=== PATIENT | male | born 1975 | race Caucasian/White ===

== ENCOUNTER 2017-09-15 02:28 | Emergency (ER) | payer MEDICAID, SELFPAY ==
[2017-09-15 02:32] VITALS: BP 130/90; PULSE 78; RESP 20; TEMP 37.1; O2SAT 98; BMI 30.5
--- NOTE | 2017-09-15 02:37 | XR_ITS ---
EXAM: XR lumbar spine 2-3V HISTORY: Low back pain ITS.REASON: back pain ORDERING PHYSICIAN: Esau Will MD PATIENT AGE: 42 years COMPARISON: None FINDINGS: Normal alignment. No fracture or dislocation. No lytic or blastic change. There is decrease in the disc space at L5-S1 consistent with degenerative disc disease. IMPRESSION: Degenerative disc disease L5-S1 otherwise negative
--- NOTE | 2017-09-15 02:52 | HMH.EDBACK ---
ED Disposition Clinical Impression: Lumbar radiculopathy Disposition: Home, Self-Care Condition on Discharge: Good Instructions: DI for Low Back Pain Additional Instructions: call this am for follow up Prescriptions: predniSONE [Prednisone 20mg Tab] 20 mg PO DAILY #10 tab Tizanidine HCl [Zanaflex 4mg tablet] 4 mg PO TID #21 tab Referrals: Shiv Colon MD [Primary Care Provider] - - Critical Care Critical Care Time: No Attestation: On 09/15/17, the high probability of a clinically significant, sudden or life threatening deterioration of the following system(s) required my full and direct attention, intervention and personal management. The time I documented below is in addition to time spent performing reported procedures but includes the following listed in this critical care notation. Medical Decision Making - Medical Records Medical records reviewed: Yes: I reviewed the patient's medical records. - [place] Inquiry Pt receiving controlled substance: No Vital Signs: 09/15/17 02:32 Temperature 98.7 F Temperature Source Oral Pulse Rate [Right Radial] 78 Respiratory Rate 20 Blood Pressure [Right Arm] 130/90 Blood Pressure Mean [Right Arm] 103 Blood Pressure Source [Right Arm] Manual Cuff/ Auscultation 02 Sat by Pulse Oximetry 98 - Lab Data Lab results reviewed: Yes: I reviewed the patient's lab results. Lab Results 09/15/17 03:05: WBC 13.2 H, RBC 4.94, Hgb 14.8, Hct 44.0, MCV 89.0, MCH 30.0, MCHC 33.7, RDW 12.3, Plt Count 286, MPV 7.3 L, Neut % (Auto) 82.3 H, Lymph % (Auto) 12.0, [place] % (Auto) 4.6, Eos % (Auto) 0.9, Baso % (Auto) 0.3, Neut # (Auto) 10.8 H, Lymph # (Auto) 1.6, [place] # (Auto) 0.6, Eos # (Auto) 0.1, Baso # (Auto) 0.0 09/15/17 03:05: Sodium 139, Potassium 3.2 L, Chloride 103, Carbon Dioxide 26, Anion Gap 13.2, BUN 22 H, Creatinine 1.07, Estimated Creat Clear 132, Estimated GFR 77, Est GFR ( Amer) 93, Glucose 113 H Result diagrams: 09/15/17 03:05 09/15/17 03:05 Orders (Tests/Meds): ED MEDICATIONS Generic Name Dose Route Start Last Admin Trade Name Freq PRN Reason Stop Dose Admin Acetaminophen/Codeine Phosphate 1 alvino 09/15/17 04:00 Acetaminophen W/Codeine #3 Take Home Pack (6) PO 09/15/17 04:01 ONCE ONE Discontinued Medications Generic Name Dose Route Start Last Admin Trade Name Freq PRN Reason Stop Dose Admin Butorphanol Tartrate 1 mg 09/15/17 02:57 09/15/17 03:06 Stadol 1mg/1ml Vial IV 09/15/17 02:58 1 mg ONCE ONE Administration Ketorolac Tromethamine 60 mg 09/15/17 02:38 09/15/17 02:40 Toradol 60mg/2ml Vial IM 09/15/17 02:39 60 mg ONCE ONE Administration Methylprednisolone Sodium Succinate 125 mg 09/15/17 02:57 09/15/17 03:06 Solu-Medrol 125mg/2ml Vial IV 09/15/17 02:58 125 mg ONCE ONE Administration Promethazine HCl 25 mg 09/15/17 02:57 09/15/17 03:06 Phenergan 25mg/Ml 1ml Vial IV 09/15/17 02:58 25 mg ONCE ONE Administration Sodium Chloride 50 ml 09/15/17 02:57 09/15/17 03:06 Sod Chlor 0.9% 50ml Bag IV 09/15/17 02:58 50 ml ONCE ONE Administration ORDERS Category Date Time Status XR lumbar spine 2-3V Stat Exams 09/15/17 02:37 Ordered ESR [Erythrocyte Sedimentation Rate] Stat Lab 09/15/17 03:05 Received - Radiology Data #1 Image(s): L-Spine Image Reviewed: Yes I reviewed the patient's radiology image Preliminary Findings: No Fracture Seen Back Pain HPI - General Chief Complaint: Back Pain/Injury Stated Complaint: Lower Back Pain Time Seen by Provider: 09/15/17 02:52 Mode of Arrival: Family Vehicle Source of Information: Patient, Spouse, Medical Record Limitations: No Limitations Description of Symptoms (Recalled from ER Triage Doc. by RN): mid lower back pain since last pm at approx 1999. pt states he thinks he strained his back while moving boxes yesterday. pt states he took 1000 mg tylenol with no relief. - History of Present Illness
--- NOTE | 2017-09-15 02:55 | ED_ITS ---
ED Disposition Clinical Impression: Lumbar radiculopathy Disposition: Home, Self-Care Condition on Discharge: Good Instructions: DI for Low Back Pain Additional Instructions: call this am for follow up Prescriptions: predniSONE [Prednisone 20mg Tab] 20 mg PO DAILY #10 tab Tizanidine HCl [Zanaflex 4mg tablet] 4 mg PO TID #21 tab Referrals: Shiv Colon MD [Primary Care Provider] - - Critical Care Critical Care Time: No Attestation: On 09/15/17, the high probability of a clinically significant, sudden or life threatening deterioration of the following system(s) required my full and direct attention, intervention and personal management. The time I documented below is in addition to time spent performing reported procedures but includes the following listed in this critical care notation. Medical Decision Making - Medical Records Medical records reviewed: Yes: I reviewed the patient's medical records. - [place] Inquiry Pt receiving controlled substance: No Vital Signs: 09/15/17 02:32 Temperature 98.7 F Temperature Source Oral Pulse Rate [Right Radial] 78 Respiratory Rate 20 Blood Pressure [Right Arm] 130/90 Blood Pressure Mean [Right Arm] 103 Blood Pressure Source [Right Arm] Manual Cuff/ Auscultation 02 Sat by Pulse Oximetry 98 - Lab Data Lab results reviewed: Yes: I reviewed the patient's lab results. Lab Results 09/15/17 03:05: WBC 13.2 H, RBC 4.94, Hgb 14.8, Hct 44.0, MCV 89.0, MCH 30.0, MCHC 33.7, RDW 12.3, Plt Count 286, MPV 7.3 L, Neut % (Auto) 82.3 H, Lymph % ( Auto) 12.0, [place] % (Auto) 4.6, Eos % (Auto) 0.9, Baso % (Auto) 0.3, Neut # (Auto ) 10.8 H, Lymph # (Auto) 1.6, [place] # (Auto) 0.6, Eos # (Auto) 0.1, Baso # (Auto ) 0.0 09/15/17 03:05: Sodium 139, Potassium 3.2 L, Chloride 103, Carbon Dioxide 26, Anion Gap 13.2, BUN 22 H, Creatinine 1.07, Estimated Creat Clear 132, Estimated GFR 77, Est GFR ( Amer) 93, Glucose 113 H Result diagrams: 09/15/17 03:05 09/15/17 03:05 Orders (Tests/Meds): ED MEDICATIONS Generic Name Dose Route Start Last Admin Trade Name [place] PRN Reason Stop Dose Admin Acetaminophen/Codeine Phosphate 1 alvino 09/15/17 04:00 Acetaminophen W/Codeine #3 Take Home Pack (6) PO 09/15/17 04:01 ONCE ONE Discontinued Medications Generic Name Dose Route Start Last Admin Trade Name Armand PRN Reason Stop Dose Admin Butorphanol Tartrate 1 mg 09/15/17 02:57 09/15/17 03:06 Stadol 1mg/1ml Vial IV 09/15/17 02:58 1 mg ONCE ONE Administration Ketorolac Tromethamine 60 mg 09/15/17 02:38 09/15/17 02:40 Toradol 60mg/2ml Vial IM 09/15/17 02:39 60 mg ONCE ONE Administration Methylprednisolone Sodium Succinate 125 mg 09/15/17 02:57 09/15/17 03:06 Solu-Medrol 125mg/2ml Vial IV 09/15/17 02:58 125 mg ONCE ONE Administration Promethazine HCl 25 mg 09/15/17 02:57 09/15/17 03:06 Phenergan 25mg/Ml 1ml Vial IV 09/15/17 02:58 25 mg ONCE ONE Administration Sodium Chloride 50 ml 09/15/17 02:57 09/15/17 03:06 Sod Chlor 0.9% 50ml Bag IV 09/15/17 02:58 50 ml ONCE ONE Administration ORDERS Category Date Time Status XR lumbar spine 2-3V Stat Exams 09/15/17 02:37 Ordered ESR [Erythrocyte Sedimentation Rate] Stat Lab 09/15/17 03
[2017-09-15 03:10] LABS: Basophils % 0.3 % (0.1-2.0); Eosinophils # 0.1 K/mm3 (0.0-0.4); Eosinophils % 0.9 % (0.1-12.0); Hemoglobin 14.8 g/dL (14.1-18.0); Lymphocytes # 1.6 K/mm3 (0.7-4.5); Mean Corpuscular HGB Conc 33.7 g/dL (31.8-35.4); Mean Platelet Volume 7.3 fl (7.4-10.4); Monocytes # 0.6 K/mm3 (0.1-1.0); Monocytes % 4.6 % (1.7-9.3); Neutrophils # 10.8 K/mm3 (1.8-7.8); Neutrophils % 82.3 % (37.0-80.0); Platelet Count 286 K/mm3 (142-424); Red Blood Count 4.94 M/mm3 (4.60-6.20); Red Cell Distribution Width 12.3 % (11.5-17.5); White Blood Count 13.2 K/mm3 (4.8-10.8)
[2017-09-15 03:19] LABS: Anion Gap 13.2 mEq/L (5-15); Blood Urea Nitrogen 22 mg/dL (7-18); Carbon Dioxide 26 mmol/L (21.0-32.0); Chloride 103 mmol/L (98-107); Creatinine Clearance Estimated 132 mL/min (0-300); Creatinine,Serum 1.07 mg/dL (0.70-1.30); Estimated Glomerular Filt Rate 77 ml/min (>60); GFR (African American) 93 ML/MIN (>60); Glucose 113 mg/dL (74-106); Potassium 3.2 mmoL/L (3.5-5.1); Sodium 139 mmol/L (136-145)
[2017-09-15 04:03] VITALS: BP 121/74; PULSE 80; RESP 20; TEMP 37.1; O2SAT 99
[2017-09-15 04:10] LABS: Erythrocyte Sedimentation Rate 11 mm/hr (0-15)
== END 2017-09-15 04:04 | disposition home or self-care (01) ==
PROVIDERS: Emergency Provider Emergency Medicine; Family Provider Internal Medicine Adolescent Medicine; PCP Family Medicine
DX: M54.16 Radiculopathy, lumbar region (principal)
CPT/HCPCS: 72100; 80048; 85025; 85651; 96372; 96374; 96375; 99283; J0595

== ENCOUNTER 2019-12-04 15:42 | Emergency (ER) | payer OTHER, SELFPAY ==
[2019-12-04 15:43] VITALS: BP 128/86; PULSE 88; RESP 19; TEMP 36.9; O2SAT 99; BMI 27.8
--- NOTE | 2019-12-04 15:57 | HMH.EDGENADL ---
ED Disposition Clinical Impression: Lightheadedness, Atypical chest pain, Intermittent abdominal pain Hematemesis Qualifiers: Nausea presence: with nausea Qualified Code(s): K92.0 - Hematemesis Disposition: Home, Self-Care Condition on Discharge: Good Additional Instructions: Follow-up with primary care provider, call for appointment. Drink plenty of fluids Return to the emergency department if worsening symptoms such as worsening chest pain or abdominal pain, return of vomiting of blood, shortness of breath Referrals: Toby Rosario MD [Primary Care Provider] - - Critical Care Critical Care Time: No Attestation: On , the high probability of a clinically significant, sudden or life threatening deterioration of the following system(s) required my full and direct attention, intervention and personal management. The time I documented below is in addition to time spent performing reported procedures but includes the following listed in this critical care notation. Medical Decision Making - Medical Records Medical records reviewed: Yes: I reviewed the patient's medical records. - [place] Inquiry Pt receiving controlled substance: No Vital Signs: 12/04/19 15:43 12/04/19 17:08 Temperature 98.4 F Temperature Source Oral Pulse Rate [Right Radial] 88 71 Respiratory Rate 19 Blood Pressure [Right Arm] 128/86 133/89 Blood Pressure Mean [Right Arm] 100 103 Blood Pressure Source [Right Arm] Automatic Cuff Automatic Cuff Blood Pressure Position [Right Arm] Sitting Sitting 02 Sat by Pulse Oximetry 99 98 Oxygen Delivery Method Room Air Room Air - Lab Data Lab results reviewed: Yes: I reviewed the patient's lab results. Lab Results 12/04/19 17:22: WBC 8.8, RBC 4.88, Hgb 15.4, Hct 45.0, MCV 92.2, MCH 31.6 H, MCHC 34.3, RDW 12.8, Plt Count 226, MPV 7.5, Neut % (Auto) 64.1, Lymph % (Auto) 26.6, [place] % (Auto) 7.7, Eos % (Auto) 1.3, Baso % (Auto) 0.2, Neut # (Auto) 5.6, Lymph # (Auto) 2.3, [place] # (Auto) 0.7, Eos # (Auto) 0.1, Baso # (Auto) 0.0 12/04/19 17:22: Sodium 138, Potassium 3.5, Chloride 102, Carbon Dioxide 31 H, Anion Gap 8.5, BUN 13, Creatinine 0.80, Estimated Creat Clear 158, Estimated GFR 106, Est GFR ( Amer) 128, Glucose 94, Calcium 9.2, Total Bilirubin 0.7, AST 28, ALT 22, Alkaline Phosphatase 84, Troponin I < 0.01, Total Protein 7.4, Albumin 4.3, Globulin 3.1, Albumin/Globulin Ratio 1.4, Lipase 77 12/04/19 18:09: Urine Color Yellow, Urine Appearance Clear, Urine pH 6.0, Ur Specific [place] >= 1.030, Urine Protein Negative, Urine Glucose (UA) Negative, Urine Ketones Trace, Urine Blood Negative, Urine Nitrate Negative, Urine Bilirubin Negative, Urine Urobilinogen 0.2, Ur Leukocyte Esterase Negative, Urine WBC Occasional, Ur Squamous Epith Cells Occasional, Urine Bacteria Trace, Urine Mucus Trace Result diagrams: 12/04/19 17:22 12/04/19 17:22 Orders (Tests/Meds): ORDERS Category Date Time Status Troponin I Q3H Lab 12/04/19 19:15 Ordered Troponin I Q3H Lab 12/04/19 22:15 Ordered - Radiology Data #1 Image(s): Chest Image Reviewed: Yes I reviewed the patient's radiology image Preliminary Findings: Normal/NAD - ECG Data Tracing #1 EKG interpreted by Jeferson Willis MD: Rhythm: sinus Rate: 78 [place]: normal Ectopy: none Conduction: normal ST Segment Changes: none T Wave Changes: none Q Waves: none No evidence of acute ischemia or injury Normal electrocardiogram - Physician Consults Physician Consulted: Juliana Time: 16:58 Reason -: Surgical Eval/Care Medical Decision Narrative: Hematemesis was likely a Brooke-Elena tear. Urine specific gravity is high, advised patient to drink plenty of fluids. General Adult HPI - General Stated complaint: Weakness, vomiting blood, dizziness Time Seen by Provider: 12/04/19 15:57 - History of Present Illness HPI narrative: Patient has multiple complaints. States that his main problem is that he has been feeling lig
--- NOTE | 2019-12-04 16:09 | XR_ITS ---
PROCEDURE: XR CHEST 2V CLINICAL HISTORY: cp COMPARISON: No exams were available for comparison FINDINGS: The cardiomediastinal silhouette and pulmonary vascularity are within normal limits. The lungs are clear without infiltrates, suspicious nodules, or pleural effusions. No acute bony abnormalities. IMPRESSION: No acute findings. Dictated by: Colt Elizabeth MD 12/04/2019 18:01 Electronically signed by Colt Elizabeth MD in [place] 12/04/2019 18:01
--- NOTE | 2019-12-04 16:09 | ECG_ITS ---
APPROVED REPORT Exam: Resting ECG HR:78 bpm ECG Measurements Heart Rate 78 AXES OK 162 P 51 QRSd 88 QRS -2 QT 384 T 27 QTc 437 <Conclusion> Normal sinus rhythm Normal ECG Electronically signed by : Toby Rosario, 12/05/2019 06:13:35
--- NOTE | 2019-12-04 16:18 | PC.NURSE ---
PT TO RAD
[2019-12-04 17:08] VITALS: BP 133/89; PULSE 71; O2SAT 98
[2019-12-04 17:37] LABS: Basophils % 0.2 % (0.1-2.0); Chloride 102 mmol/L (98-107); Eosinophils # 0.1 K/mm3 (0.0-0.4); Eosinophils % 1.3 % (0.1-12.0); Hemoglobin 15.4 g/dL (14.1-18.0); Lymphocytes # 2.3 K/mm3 (0.7-4.5); Lymphocytes % 26.6 % (10-50); Mean Corpuscular HGB Conc 34.3 g/dL (31.8-35.4); Mean Corpuscular Hemoglobin 31.6 pg (27.0-31.2); Mean Corpuscular Volume 92.2 fl (80-94); Mean Platelet Volume 7.5 fl (7.4-10.4); Monocytes # 0.7 K/mm3 (0.1-1.0); Monocytes % 7.7 % (1.7-9.3); Neutrophils # 5.6 K/mm3 (1.8-7.8); Neutrophils % 64.1 % (37.0-80.0); Platelet Count 226 K/mm3 (142-424); Red Blood Count 4.88 M/mm3 (4.60-6.20); Red Cell Distribution Width 12.8 % (11.5-17.5); Sodium 138 mmol/L (136-145); White Blood Count 8.8 K/mm3 (4.8-10.8)
[2019-12-04 17:38] LABS: Potassium 3.5 mmoL/L (3.5-5.1)
[2019-12-04 17:40] LABS: Alanine Aminotransferase 22 U/L (12-78); Albumin Level 4.3 g/dl (3.5-5.0); Alkaline Phosphatase 84 U/L (38-126); Anion Gap 8.5 mEq/L (5-15); Aspartate Amino Transferase 28 U/L (17-59); Bilirubin,Total 0.7 mg/dl (0.2-1.3); Blood Urea Nitrogen 13 mg/dl (9-20); Calcium 9.2 mg/dl (8.4-10.2); Carbon Dioxide 31 mmol/L (22.0-30.0); Creatinine Clearance Estimated 158 mL/min (50-200); Estimated Glomerular Filt Rate 106 ml/min (>60); GFR (African American) 128 ML/MIN (>60); Glucose 94 mg/dl (74-100); Lipase 77 U/L (23-300)
[2019-12-04 17:41] LABS: Albumin/Globulin Ratio 1.4 (1.1-1.8); Globulin 3.1 g/dL (1.3-3.2); Total Protein,Serum 7.4 g/dl (6.3-8.2)
[2019-12-04 18:01] LABS: Troponin I < 0.01 ng/ml (0.00-0.034)
[2019-12-04 18:11] LABS: Microscopic, Urine URINE MICROSCOPIC (MICROSCOPIC)
[2019-12-04 18:14] LABS: Appearance,Urine CLEAR (Clear); Blood, Urine Negative (Negative); Color,Urine YELLOW (Yellow); Glucose,Urine (UA) Negative (Negative); Ketones,Urine TRACE (Negative); Leukocyte Esterase,Urine Negative (Negative); Nitrate,Urine Negative (Negative); Protein,Urine Negative (Negative); Specific Gravity, Urine >= 1.030 (1.005-1.030); Urobilinogen,Urine 0.2 EU/dl (0.2)
[2019-12-04 18:37] LABS: Bilirubin,Urine Negative (Negative)
[2019-12-04 18:38] LABS: Bacteria,Urine Trace /lpf; Mucus,Urine Trace /lpf; Squamous Epithelial Cell,Urine Occasional #/hpf (0-5); WBC,Urine Occasional #/hpf (0-3)
[2019-12-04 19:31] VITALS: BP 133/89; PULSE 71; RESP 19; TEMP 36.9; O2SAT 98
== END 2019-12-04 19:32 | disposition home or self-care (01) ==
PROVIDERS: Emergency Provider Emergency Medicine; PCP Internal Medicine Adolescent Medicine
DX: R42 Dizziness and giddiness (principal); R07.89 Other chest pain; K92.0 Hematemesis
CPT/HCPCS: 71046; 80053; 81001; 83690; 84484; 85025; 93005; 99284

== ENCOUNTER 2021-05-25 11:57 | Emergency (ER) | payer OTHER, SELFPAY ==
[2021-05-25 11:58] VITALS: BP 134/88; PULSE 79; RESP 19; O2SAT 99; BMI 29.5
--- NOTE | 2021-05-25 13:25 | HMH.EDGENADL ---
ED Disposition Clinical Impression: Lumbago Qualifiers: Chronicity: acute Back pain laterality: midline Sciatica presence: without sciatica Qualified Code(s): M54.50 - Low back pain, unspecified Disposition: Home, Self-Care Condition on Discharge: Good Prescriptions: methocarbamoL [Methocarbamol] 750 mg PO TID PRN #21 tab PRN Reason: Muscle Spasm Transmission Status: Received by [facility] #[id number] Referrals: Toby Rosario MD [Primary Care Provider] - Time of Disposition: 13:28 - Critical Care Critical Care Time: No Attestation: On 05/25/21, the high probability of a clinically significant, sudden or life threatening deterioration of the following system(s) required my full and direct attention, intervention and personal management. The time I documented below is in addition to time spent performing reported procedures but includes the following listed in this critical care notation. Medical Decision Making - Medical Records Medical records reviewed: Yes: I reviewed the patient's medical records. - [place] Inquiry Pt receiving controlled substance: No Vital Signs: 05/25/21 11:58 Pulse Rate [Left Radial] 79 Respiratory Rate 19 Blood Pressure [Right Arm] 134/88 Blood Pressure Mean [Right Arm] 103 Blood Pressure Source [Right Arm] Automatic Cuff Blood Pressure Position [Right Arm] Sitting 02 Sat by Pulse Oximetry 99 Oxygen Delivery Method Room Air Orders (Tests/Meds): ED MEDICATIONS Discontinued Medications Generic Name Dose Route Start Last Admin Trade Name Freq PRN Reason Stop Dose Admin Ketorolac Tromethamine 30 mg 05/25/21 13:24 05/25/21 13:30 Ketorolac 30mg/Ml Vial IM 05/25/21 13:25 30 mg ONCE ONE Administration Orphenadrine Citrate 30 mg 05/25/21 13:24 05/25/21 13:30 Orphenadrine Citrate 60mg/2ml Vial IM 05/25/21 13:25 30 mg ONCE ONE Administration Medical Decision Narrative: 46yo M evaluated for acute on chronic low back pain. Patient no acute distress on initial evaluation. No traumatic injury and therefore x-ray is not warranted at this time. Treated with Toradol and Norflex. Patient reports he has someone to drive him home. General Adult HPI - General Chief complaint: PAIN Stated complaint: low back pain Time Seen by Provider: 05/25/21 13:00 Mode of Arrival: Ambulatory Limitations: No Limitations Description of Symptoms (Recalled from ER Triage Doc. by RN): c/o middle back pain that started last Tuesday, he took a muscle relaxer he has at home and it did help but then last night it started back with no known injury. States he has scoliosis and he knows this is what is causing his pain. - History of Present Illness HPI narrative: 46yo M presents the emergency department secondary to low back pain. Patient reports he has a history of scoliosis and has a previous episode similar to this. He took his home muscle relaxer and anti-inflammatory medication earlier today without improvement. He denies any fall, trauma. He denies any previous history of surgery. Denies any recent illness. - Related Data Previous Rx's Medication Instructions Recorded Hydrocodone/Acetaminophen [[place] 1 each PO Q6 #14 tab 05/30/19 5-325 Tablet] raNITIdine HCL [Ranitidine HCl] 150 mg PO BID #60 cap 05/30/19 Nabumetone 750 mg PO BID 15 Days #30 tab 09/22/19 Tizanidine HCl [Zanaflex 4mg 4 mg PO TID PRN 10 Days #45 tab 09/22/19 tab] methocarbamoL [Methocarbamol] 750 mg PO TID PRN #21 tab 05/25/21 Allergies Allergy/AdvReac Type Severity Reaction Status Date / Time No Known Allergies Allergy Verified 05/30/19 11:22 [facility] History - Hepatitis A Screen Drug use history?: No High risk sexual behaviors?: No History of sexually transmitted infection?: No Currently employed?: No Childcare worker?: No Do you have indoor plumbing?: Yes Do you have electricity?: Yes Attestation statement:: This patient has been screened for Hepatitis A risk fac
[2021-05-25 14:49] VITALS: BP 138/80; PULSE 71; RESP 18; TEMP 36.8; O2SAT 99
== END 2021-05-25 14:00 | disposition home or self-care (01) ==
PROVIDERS: Emergency Provider Family Medicine; PCP Internal Medicine Adolescent Medicine
DX: M54.50 Low back pain, unspecified (principal)
CPT/HCPCS: 72129; 72132; 80053; 81001; 82150; 83690; 84145; 85025; 85651; 86140; 96372; 96374; 96375; 99281; 99283; J2405; Q9967

== ENCOUNTER 2021-05-25 20:35 | Emergency (ER) | payer OTHER, SELFPAY ==
[2021-05-25 20:36] VITALS: BP 98/66; PULSE 86; RESP 16; TEMP 37; O2SAT 98; BMI 29.5
--- NOTE | 2021-05-25 22:19 | HMH.EDBACK ---
ED Disposition Clinical Impression: Lumbar radiculopathy Disposition: Home, Self-Care Condition on Discharge: Good Instructions: DI for Low Back Pain Additional Instructions: csll pcp in am Prescriptions: predniSONE [Prednisone 20mg Tab] 20 mg PO BID #10 tab Transmission Status: Pending to [facility] #[id number] Referrals: Toby Rosario MD [Primary Care Provider] - - Critical Care Critical Care Time: No Attestation: On 05/25/21, the high probability of a clinically significant, sudden or life threatening deterioration of the following system(s) required my full and direct attention, intervention and personal management. The time I documented below is in addition to time spent performing reported procedures but includes the following listed in this critical care notation. Medical Decision Making - Medical Records Medical records reviewed: Yes: I reviewed the patient's medical records. - [place] Inquiry Pt receiving controlled substance: No Vital Signs: 05/25/21 20:36 05/25/21 23:00 05/26/21 00:00 Temperature 98.6 F Temperature Source Oral Pulse Rate 78 64 Pulse Rate [Right Radial] 86 Respiratory Rate 16 Blood Pressure 106/68 L 119/70 Blood Pressure [Right Arm] 98/66 L Blood Pressure Mean [Right Arm] 76 Blood Pressure Source [Right Arm] Automatic Cuff Blood Pressure Position [Right Arm] Sitting 02 Sat by Pulse Oximetry 98 97 97 Oxygen Delivery Method Room Air Room Air Room Air - Lab Data Lab results reviewed: Yes: I reviewed the patient's lab results. Lab Results 05/25/21 21:56: Urine Color Yellow, Urine Appearance Clear, Urine pH 6.0, Ur Specific [place] >= 1.030, Urine Protein Negative, Urine Glucose (UA) Negative, Urine Ketones Negative, Urine Blood Negative, Urine Nitrate Negative, Urine Bilirubin Negative, Urine Urobilinogen 0.2, Ur Leukocyte Esterase Negative, Urine RBC None, Urine WBC 5-10, Ur Squamous Epith Cells 3-5, Urine Bacteria Trace 05/25/21 22:30: WBC 13.9 H, RBC 5.09, Hgb 15.7, Hct 46.6, MCV 91.5, MCH 30.8, MCHC 33.7, RDW 12.8, Plt Count 294, MPV 8.2, Neut % (Auto) 73.2, Lymph % (Auto) 17.8, [place] % (Auto) 6.4, Eos % (Auto) 2.0, Baso % (Auto) 0.5, Neut # (Auto) 10.2 H, Lymph # (Auto) 2.5, [place] # (Auto) 0.9, Eos # (Auto) 0.3, Baso # (Auto) 0.1 05/25/21 22:30: Sodium 137, Potassium 4.4, Chloride 103, Carbon Dioxide 30, Anion Gap 8.4, BUN 16, Creatinine 1.00, Estimated Creat Clear 132, Estimated GFR 81, Est GFR ( Amer) 98, Glucose 127 H, Calcium 9.8, Total Bilirubin 0.3, AST 40, ALT 27, Alkaline Phosphatase 81, Total Protein 7.0, Albumin 4.1, Globulin 2.9, Albumin/Globulin Ratio 1.4 05/25/21 22:30: C-Reactive Protein 2.3, Amylase 67, Lipase 80 05/25/21 22:30: ESR 7 05/25/21 22:30: Procalcitonin 0.057 Result diagrams: 05/25/21 22:30 05/25/21 22:30 Orders (Tests/Meds): ED MEDICATIONS Discontinued Medications Generic Name Dose Route Start Last Admin Trade Name Freq PRN Reason Stop Dose Admin Acetaminophen/Codeine Phosphate 1 alvino 05/25/21 23:38 Acetaminophen 300mg W/Codeine 30mg Take Home Pack (6) PO 05/25/21 23:39 ONCE ONE Iopamidol 100 ml 05/25/21 23:03 05/25/21 23:03 Iopamidol-370 (76%);100ml Bottle IV 05/25/21 23:04 100 ml ONCE ONE Administration Ketorolac Tromethamine 30 mg 05/25/21 22:25 05/25/21 22:32 Ketorolac 30mg/Ml Vial IV 05/25/21 22:26 30 mg ONCE ONE Administration Methylprednisolone Sodium Succinate 125 mg 05/25/21 22:24 05/25/21 22:32 Methylprednisolone Sod Succ 125mg Vial IV 05/25/21 22:25 125 mg ONCE ONE Administration Sodium Chloride 10 ml 05/25/21 23:03 05/25/21 23:03 Sodium Chloride 0.9% 10ml Syr (Rad Only) IV 05/25/21 23:04 10 ml ONCE ONE Administration - CT Data CT Scan: T-Spine, L-Spine Time Received: 00:[address] Reviewed: Yes: I have viewed the radiologist's interpretation Preliminary Findings: Abnormal, No Fracture Seen Medical Decision Narrative:
--- NOTE | 2021-05-25 22:23 | CT_ITS ---
PROCEDURE INFORMATION: Exam: CT Lumbar Spine With Contrast Exam date and time: 05/25/2021 10:23 PM Age: 46 years old Clinical indication: Low back pain; Patient HX: Back pain for 1 day, no known injury, PT did lift heavy boxes this weekend TECHNIQUE: Imaging protocol: Computed tomography images of the lumbar spine with intravenous contrast. Radiation optimization: All CT scans at this facility use at least one of these dose optimization techniques: automated exposure control; mA and/or kV adjustment per patient size (includes targeted exams where dose is matched to clinical indication); or iterative reconstruction. Contrast material: ISOVUE; Contrast volume: 100 ml; Contrast route: IV; COMPARISON: CR SPLUMBLM XR lumbar spine 2-3V 09/15/2017 2:36 AM FINDINGS: Vertebrae: No acute fracture. Normal alignment. Discs/Spinal canal/Neural foramina: No significant disc protrusion. No severe spinal canal stenosis. No significant neural foraminal narrowing. Gallbladder and bile ducts: Cholelithiasis. Bladder: Mild nonspecific urinary bladder wall thickening, which is likely due to low urine volume. Soft tissues: Unremarkable. IMPRESSION: 1. No acute fracture or malalignment of the lumbar spine. 2. Mild nonspecific urinary bladder wall thickening, which is likely due to low urine volume. Please exclude infection clinically. 3. Cholelithiasis.
--- NOTE | 2021-05-25 22:23 | CT_ITS ---
PROCEDURE INFORMATION: Exam: CT Thoracic Spine With Contrast Exam date and time: 05/25/2021 10:23 PM Age: 46 years old Clinical indication: Pain in thoracic spine; Patient HX: Back pain for 1 day with no known injury, PT did lift heavy boxes this weekend TECHNIQUE: Imaging protocol: Computed tomography images of the thoracic spine with intravenous contrast. Radiation optimization: All CT scans at this facility use at least one of these dose optimization techniques: automated exposure control; mA and/or kV adjustment per patient size (includes targeted exams where dose is matched to clinical indication); or iterative reconstruction. Contrast material: ISOVUE; Contrast volume: 100 ml; Contrast route: IV; COMPARISON: ABDPELWO CT abdomen pelvis wo con 07/26/2018 8:54 AM FINDINGS: Vertebrae: No acute fracture. Normal alignment. Discs/Spinal canal/Neural foramina: No significant disc protrusion. No severe spinal canal stenosis. No significant neural foraminal narrowing. Soft tissues: Unremarkable. Lungs: There is a 5 mm left upper lobe nodule image 26 series 5. Mediastinum: Stigmata of old granulomatous disease. IMPRESSION: 1. No acute fracture or malalignment of the thoracic spine. 2. There is a 5 mm left upper lobe nodule image 26 series 5. For patients at low risk (minimal or absent history of smoking and of other known risk factors), no routine follow-up is indicated. For patients at high risk (history of smoking or of other known risk factors), consider optional CT Chest at 12 months. (Reference: Rachael) REFERENCES: Rachael Matute, et al. Guidelines for Management of Incidental Pulmonary Nodules Detected on CT Images: From the Fleischner Society 2017. Radiology. 2017;284(1):228-243.
[2021-05-25 22:27] LABS: Microscopic, Urine URINE MICROSCOPIC (MICROSCOPIC)
[2021-05-25 22:28] LABS: Appearance,Urine CLEAR (Clear); Bilirubin,Urine Negative (Negative); Blood, Urine Negative (Negative); Color,Urine YELLOW (Yellow); Glucose,Urine (UA) Negative (Negative); Ketones,Urine Negative (Negative); Leukocyte Esterase,Urine Negative (Negative); Nitrate,Urine Negative (Negative); Protein,Urine Negative (Negative); Specific Gravity, Urine >= 1.030 (1.005-1.030); Urobilinogen,Urine 0.2 EU/dl (0.2)
[2021-05-25 22:41] LABS: Bacteria,Urine Trace /lpf
[2021-05-25 22:47] LABS: Alanine Aminotransferase 27 U/L (12-78); Albumin Level 4.1 g/dl (3.5-5.0); Albumin/Globulin Ratio 1.4 (1.1-1.8); Alkaline Phosphatase 81 U/L (38-126); Anion Gap 8.4 mEq/L (5-15); Aspartate Amino Transferase 40 U/L (17-59); Bilirubin,Total 0.3 mg/dl (0.2-1.3); Blood Urea Nitrogen 16 mg/dl (9-20); Calcium 9.8 mg/dl (8.4-10.2); Carbon Dioxide 30 mmol/L (22.0-30.0); Chloride 103 mmol/L (98-107); Creatinine Clearance Estimated 132 mL/min (50-200); Estimated Glomerular Filt Rate 81 ml/min (>60); GFR (African American) 98 ML/MIN (>60); Globulin 2.9 g/dL (1.3-3.2); Glucose 127 mg/dl (74-100); Potassium 4.4 mmoL/L (3.5-5.1); Sodium 137 mmol/L (136-145)
[2021-05-25 22:48] LABS: Basophils # 0.1 K/mm3 (0-0.2); Basophils % 0.5 % (0.1-2.0); Eosinophils # 0.3 K/mm3 (0.0-0.4); Hematocrit 46.6 % (42.0-52.0); Hemoglobin 15.7 g/dL (14.1-18.0); Lymphocytes # 2.5 K/mm3 (0.7-4.5); Lymphocytes % 17.8 % (10-50); Mean Corpuscular HGB Conc 33.7 g/dL (31.8-35.4); Mean Corpuscular Hemoglobin 30.8 pg (27.0-31.2); Mean Corpuscular Volume 91.5 fl (80-94); Mean Platelet Volume 8.2 fl (7.4-10.4); Monocytes # 0.9 K/mm3 (0.1-1.0); Monocytes % 6.4 % (1.7-9.3); Neutrophils # 10.2 K/mm3 (1.8-7.8); Neutrophils % 73.2 % (37.0-80.0); Platelet Count 294 K/mm3 (142-424); Red Blood Count 5.09 M/mm3 (4.60-6.20); Red Cell Distribution Width 12.8 % (11.5-17.5); White Blood Count 13.9 K/mm3 (4.8-10.8)
[2021-05-25 23:00] VITALS: BP 106/68; PULSE 78; O2SAT 97
[2021-05-25 23:02] LABS: Amylase 67 U/L (30-110); Lipase 80 U/L (23-300)
[2021-05-25 23:03] LABS: Procalcitonin 0.057 ng/mL (0.0-2.0)
[2021-05-25 23:08] LABS: C-Reactive Protein 2.3 mg/L (0-4)
[2021-05-25 23:18] LABS: Erythrocyte Sedimentation Rate 7 mm/hr (0-15)
[2021-05-26] VITALS: BP 119/70; PULSE 64; O2SAT 97
[2021-05-26 00:26] VITALS: BP 116/66; PULSE 65; RESP 16; TEMP 36.7; O2SAT 98
== END 2021-05-26 00:28 | disposition home or self-care (01) ==
PROVIDERS: Emergency Provider Emergency Medicine; PCP Internal Medicine Adolescent Medicine
DX: M54.16 Radiculopathy, lumbar region (principal)
CPT/HCPCS: 72129; 72132; 80053; 81001; 82150; 83690; 84145; 85025; 85651; 86140; 96374; 96375; 99283; J2405; Q9967

== ENCOUNTER 2022-07-22 23:17 | Emergency (ER) | payer OTHER, SELFPAY ==
[2022-07-22 23:17] VITALS: BP 124/64; PULSE 85; RESP 18; TEMP 36.6; O2SAT 97; BMI 27.1
--- NOTE | 2022-07-22 23:32 | XR_ITS ---
PROCEDURE INFORMATION: Exam: XR Thoracic Spine Exam date and time: 07/22/2022 11:42 PM Age: 47 years old Clinical indication: Pain in thoracic spine TECHNIQUE: Imaging protocol: Radiologic exam of the thoracic spine. Views: 2 views. COMPARISON: CT THORACIC SPINE W CON 05/25/2021 10:46 PM FINDINGS: Bones/joints: Normal. No acute fracture. Normal alignment. Soft tissues: Unremarkable. IMPRESSION: No acute findings.
--- NOTE | 2022-07-22 23:32 | XR_ITS ---
PROCEDURE INFORMATION: Exam: XR Lumbosacral Spine Exam date and time: 07/22/2022 11:43 PM Age: 47 years old Clinical indication: Low back pain TECHNIQUE: Imaging protocol: Radiologic exam of the lumbosacral spine. Views: 2 or 3 views. COMPARISON: CT LUMBAR SPINE W CON 05/25/2021 10:46 PM FINDINGS: Bones/joints: Alignment anatomic. Vertebral body heights maintained. Mild L5-S1 disc space height loss with facet arthritis and vacuum cleft disc space, unchanged. No acute displaced fracture. Soft tissues: Unremarkable. IMPRESSION: Mild L5-S1 degenerative disc disease is unchanged. No acute injury.
--- NOTE | 2022-07-23 00:27 | HMH.EDBACK ---
Discharge Plan Disposition Patient Disposition: Home, Self-Care Prescriptions Prescriptions: New prednisone [prednisone] 20 mg tablet 20 mg PO BID Qty: 10 0RF No Action hydrocodone-acetaminophen 1 EACH tablet 1 each PO Q6 Qty: 14 0RF ranitidine HCl 150 MG capsule 150 mg PO BID Qty: 60 0RF tizanidine 4 MG tablet 4 mg PO TID PRN (Reason: Muscle Pain) 10 Days Qty: 45 0RF nabumetone 750 MG tablet 750 mg PO BID 15 Days Qty: 30 0RF methocarbamol 750 MG tablet 750 mg PO TID PRN (Reason: Muscle Spasm) Qty: 21 0RF prednisone 20 MG tablet 20 mg PO BID Qty: 10 0RF Referrals Follow up/Referrals: Toby Rosario MD [Primary Care Provider] - See instructions Clinical Impressions Clinical Impression: Lumbar radiculopathy Instructions Patient Instructions: DI for Low Back Pain Discharge ED Provider: Esau Will Back Pain HPI General Chief Complaint: Back Pain/Injury Stated Complaint: severe back pain Time Seen by Provider: 07/23/22 00:27 Mode of Arrival: Ambulatory Source of Information: Patient Limitations: No Limitations Description of Symptoms (Recalled from ER Triage Doc. by RN): pt c/o middle back pain that started today. pt states he has scoliosis and has a flared up about twice a year. History of Present Illness HPI Narrative: acute back pain w/o fever/rash or trauma with no cauda equina sx - has hx of sciolosis and has had sx in past Complaint: back pain Onset (ago): hour(s) Duration: constant Similar Symptoms Previously: Yes Location: lumbar spine Severity: moderate Related Data Previous Rx's Medication Instructions Recorded hydrocodone 5 mg-acetaminophen 325 1 each PO Q6 #14 tabs 05/30/19 mg tablet ranitidine HCl 150 mg capsule 150 mg PO BID #60 caps 05/30/19 nabumetone 750 mg tablet 750 mg PO BID 15 days #30 tabs 09/22/19 tizanidine 4 mg tablet 4 mg PO TID PRN Muscle Pain 10 09/22/19 days #45 tabs methocarbamol 750 mg tablet 750 mg PO TID PRN Muscle Spasm #21 05/25/21 tabs prednisone 20 mg tablet 20 mg PO BID #10 tabs 11/30/21 prednisone 20 mg tablet 20 mg PO BID #10 tabs 07/23/22 Allergies Allergy/AdvReac Type Severity Reaction Status Date / Time No Known Allergies Allergy Verified 05/30/19 11:22 [facility] Disclaimer: The information contained in this section may have been updated after the patient was seen, as this information can be updated by other users. Social History Smoking Status: Never smoker alcohol intake: never current occupational status: employed Travel in the last 8 weeks: None ROS Obtained: Yes All systems reviewed & no additional complaints except as documented Physical Exam General General appearance: alert Head Head exam: normocephalic Eye Eye exam: Present PERRL and EOMI; Absent scleral icterus ENT ENT exam: Present mucous membranes moist Neck Neck exam: Present trachea midline Respiratory Respiratory exam: Present normal lung sounds bilaterally; Absent respiratory distress Cardiovascular Cardiovascular exam: Present regular rate Abdominal Exam Abdominal exam: Present soft Extremities Exam Extremities exam: Present full ROM Back Exam Back exam: Present tenderness and paraspinal tenderness; Absent full ROM or vertebral tenderness Neurological Exam Neurological exam: Present alert, oriented X3 and CN II-XII intact; Absent motor sensory deficit Psychiatric Psychiatric exam: Present normal affect Skin Skin exam: Absent rash Medical Decision Making Medical Records Medical records reviewed: Yes I reviewed the patient's medical records. [place] Inquiry Pt receiving controlled substance: No Vital Signs: 07/22/22 23:17 07/23/22 00:33 Temperature 97.9 F 97.9 F Temperature Source Oral Oral Pulse Rate 81 Pulse Rate [Right] 85 Respiratory Rate 18 18 Blood Pressure 115/74 Blood Pressure [Right Arm] 124/64 Blood Pressure Mean [Right Arm] 84 02 Sat by Pulse Oximetry 97 Lab Da
[2022-07-23 00:33] VITALS: BP 115/74; PULSE 81; RESP 18; TEMP 36.6; O2SAT 97
== END 2022-07-23 00:51 | disposition home or self-care (01) ==
PROVIDERS: Emergency Provider Emergency Medicine; PCP Internal Medicine Adolescent Medicine
DX: M54.16 Radiculopathy, lumbar region (principal)
CPT/HCPCS: 72070; 72100; 96372; 99284

== ENCOUNTER 2024-05-18 08:47 | Emergency (ER) | payer OTHER, SELFPAY ==
[2024-05-18] VITALS (10 sets, daily range): BP systolic 142–143; BP diastolic 93–104; PULSE 52–75; RESP 18–20; TEMP 36.6–36.7; O2SAT 92–99; BMI 29.8
[2024-05-18 09:01] LABS: Microscopic, Urine URINE MICROSCOPIC (MICROSCOPIC)
--- NOTE | 2024-05-18 09:05 | ED_ITS ---
Discharge Plan Disposition Patient Disposition: Home, Self-Care Prescriptions Prescriptions: No Action tizanidine 4 mg tablet 4 - 8 mg PO Q8HP PRN (Reason: Pain (Scale Score 4-6)) Patient Comments: TAKE 1 TO 2 TABLETS BY MOUTH EVERY 8 HOURS NEEDED Referrals Follow up/Referrals: Toby Rosario MD [Primary Care Provider] - See instructions Activity Restrictions/Add. Instructions Additional Instructions/Restrictions: No emergent medical condition identified today. However you do have a large single gallstone in her gallbladder neck which is likely the cause of majority of your symptoms today. This is also likely superimposed on her chronic back pain associated with your scoliosis. I highly recommend that you follow-up in an outpatient setting with your general surgeon and further discuss an elective cholecystectomy. Return with any significant worsening of her symptoms. Clinical Impressions Clinical Impression: Cholelithiasis, Acute on chronic back pain, Biliary colic Instructions Patient Instructions: DI for Low Back Pain Print Language Print Language: Georgian Discharge ED Provider: Philippe Adams General Adult HPI General Chief complaint: Back Pain/Injury Stated complaint: back pain Time Seen by Provider: 05/18/24 08:52 History of Present Illness HPI narrative: 49-year-old male presenting today with abdominal discomfort nausea and vomiting and back pain. Patient states he has chronic back pain intermittently comes to the emergency department for acute exacerbations of his chronic scoliosis type pain. He states he is having similar pain today. Denies any intermittent component states it is in his lower back nonradiating. Has some abdominal discomfort intermittently with this back pain and he is unsure as to whether or not it is primarily his abdominal pain or back pain but he states its primarily his back today. Denies any hematuria history of kidney stones etc. Has a known history of a gallstone and has outpatient follow-up with surgery. Did state he had some fatty foods and had a little bit of right upper quadrant discomfort but nothing significant at the moment. States that historically with these types of symptoms that he get some nausea medicine and a shot of pain medicine and feels better. Related Data Home Medications ?Medication ?Instructions ?Recorded ?Confirmed tizanidine 4 mg tablet 4 - 8 mg PO Q8HP PRN Pain (Scale 05/18/24 05/18/24 Score 4-6) Allergies Allergy/AdvReac Type Severity Reaction Status Date / Time No Known Allergies Allergy Verified 10/11/23 10:26 PFSH PFSH Disclaimer: The information contained in this section may have been updated after the patient was seen, as this information can be updated by other users. Social History Smoking Status: Never smoker alcohol intake: never current occupational status: employed Other Medical History Have you received the Flu Vaccine for this season: No Have you received the Pneumonia Vaccine: No ROS Obtained: Yes All systems reviewed & no additional complaints except as documented Physical Exam General General appearance: alert Respiratory Respiratory exam: Present normal lung sounds bilaterally Cardiovascular Cardiovascular exam: Present regular rate and normal rhythm Abdominal Exam Abdominal exam: Present soft; Absent distention or tenderness Back Exam Back exam: Absent CVA tenderness (R) or CVA tenderness (L) Neurological Exam Neurological exam: Present alert and oriented X3 Medical Decision Making Medical Records Screening: Per USPSTF and CDC recommendations, given the prevalence of disease in our region, it is our hospital?s policy to screen for HIV and viral Hepatitis for all patients aged 18 and over and those with ongoing risk factors. [place] Inquiry Pt receiving controlled substance: No Vital Signs: 05/18/24 08:48 05/18/24 08:58 05/18/24 09:11 Temperature 97.8 F Temperature Source Oral Pulse Rate 75 Pulse Rate [Right] 74 Respiratory Rate 20 Blood Pressure 142/104 H Blood Pressure [Right Arm] 142/104 H Blood Pressure Mean 116 Blood Pressure Mean [Right Arm] 116 Blood Pressure Source [Right Arm] Automatic Cuff 02 Sat by Pulse Oximetry 99 99 99 Oxygen Delivery Method Room Air Room Air Room Air 05/18/24 09:15 05/18/24 09:30 05/18/24 09:45 Temperature Temperature Source Pulse Rate 65 52 L 62 Pulse Rate [Right] Respiratory Rate Blood Pressure Blood Pressure [Right Arm] Blood Pressure Mean Blood Pressure Mean [Right Arm] Blood Pressure Source [Right Arm] 02 Sat by Pulse Oximetry 99 93 L 97 Oxygen Delivery Method 05/18/24 10:00 05/18/24 10:31 05/18/24 11:00 Temperature Temperature Source Pulse Rate 57 L 59 L 62 Pulse Rate [Right] Respiratory Rate Blood Pressure Blood Pressure [Right Arm] Blood Pressure Mean Blood Pressure Mean [Right Arm] Blood Pressure Source [Right Arm] 02 Sat by Pulse Oximetry 96 95 92 L Oxygen Delivery Method Lab Data Lab results reviewed: Yes I reviewed the patient's lab results. Lab Results 05/18/24 08:51: Urine Color Yellow, Urine Appearance Clear, Urine pH 5.5, Ur Specific [place] >= 1.030, Urine Protein Negative, Urine Glucose (UA) Negative, Urine Ketones Negative, Urine Blood Negative, Urine Nitrate Negative, Urine Bilirubin Negative, Urine Urobilinogen 0.2, Ur Leukocyte Esterase Negative, Urine RBC None, Urine WBC None, Ur Squamous Epith Cells Occasional, Urine Bacteria None 05/18/24 10:06: WBC 10.4, RBC 4.83, Hgb 14.8, Hct 43.6, MCV 90.3, MCH 30.7, MCHC 34.0, RDW 13.5, Plt Count 246, MPV 7.7, Neut % (Auto) 78.9, Lymph % (Auto) 15.1, Wolfe % (Auto) 5.1, Eos % (Auto) 0.5, Baso % (Auto) 0.4, Neut # (Auto) 8.2 H, Lymph # (Auto) 1.6, Wolfe # (Auto) 0.5, Eos # (Auto) 0.1, Baso # (Auto) 0.0, Sodium 137, Potassium 4.2, Chloride 104, Carbon Dioxide 28, Anion Gap 9.2, BUN 20, Creatinine 0.90, Estimated Creat Clear 143, Estimated GFR 90, Est GFR ( Amer) 109, Glucose 115 H, Calcium 9.2, Total Bilirubin 0.6, AST 37, ALT 46, Alkaline Phosphatase 88, Total Protein 6.7, Albumin 4.0, Globulin 2.7, Albumin/Globulin Ratio 1.5, Lipase 168 05/18/24 10:06 05/18/24 10:06 Orders (Tests/Meds): ED MEDICATIONS Discontinued Medications Generic Name Dose Route Start Last Admin Trade Name Freq PRN Reason Stop Dose Admin Lactated Ringer's 1,000 mls @ 999 mls/hr 05/18/24 10:00 05/18/24 10:05 Lactated Ringer's 1000 Ml Bag IV 05/18/24 11:00 999 mls/hr .Q1H1M MARTINA Administration Iopamidol 75 ml 05/18/24 10:43 05/18/24 10:44 Iopamidol-370 (76%);100ml Bottle IV 05/18/24 10:44 75 ml ONCE ONE Administration Ketorolac Tromethamine 60 mg 05/18/24 08:57 05/18/24 09:15 Ketorolac 60mg/2ml Vial IM 05/18/24 08:58 60 mg ONCE ONE Administration Morphine Sulfate 4 mg 05/18/24 09:58 05/18/24 10:05 Morphine 4mg/Ml Syringe IV 05/18/24 09:59 4 mg ONCE ONE Administration Ondansetron HCl 4 mg 05/18/24 08:57 05/18/24 09:14 Ondansetron 4mg Odt SL 05/18/24 08:58 4 mg ONCE ONE Administration Ondansetron HCl 4 mg 05/18/24 09:58 05/18/24 10:05 Ondansetron 4mg/2ml Vial IV 05/18/24 09:59 4 mg ONCE ONE Administration Sodium Chloride 10 ml 05/18/24 10:43 05/18/24 10:44 Sodium Chloride 0.9% 10ml Syr (Rad Only) IV 05/18/24 10:44 10 ml ONCE ONE Administration ORDERS Category Date Time Status CT abdomen pelvis w con Stat Cat Scan 05/18/24 09:58 Completed POCUS Point of Care (ER Only) Stat Exams 05/18/24 08:57 Completed CBC w/Auto Diff [Complete Blood Count Auto Diff] Stat Lab 05/18/24 10:06 Completed CMP [Comprehensive Metabolic Panel] Stat Lab 05/18/24 10:06 Completed Lipase Stat Lab 05/18/24 10:06 Completed UA [Urinalysis and Microscopic] Stat Lab 05/18/24 08:51 Completed Medical Decision Narrative: 49-year-old male with above history and physical. Abdominal exam is benign. Limited ultrasound of his gallbladder does show a gallstone in the gallbladder neck which could be the cause of some of his symptoms but no evidence radiographically or clinically of cholecystitis. He will keep his follow-up outpatient with his general surgeon. I do not suspect any other surgical pathology at the moment. Most likely his symptoms today are secondary to acute exacerbation of his chronic back pain possibly with some superimposed biliary colic. Will reassess after Toradol and Zofran Reassessment 10 AM. Patient writhing around in pain in his bed states he has had no improvement with the previous regimen. Still complaining of lower abdominal discomfort as well as some back pain. Differential is broad at this point including intra-abdominal pathology. He has no signs or symptoms of cauda equina from a spinal standpoint. Oriented to [employer] pathology. Will get a CT scan of the abdomen pelvis escalate his workup to include labs and urinalysis and administer morphine Zofran IV fluids and reassess. Reassessment 1124 patient feeling much better serial exams are benign at this point labs unremarkable CT scan performed which I personally interpreted which shows a large single stone in the gallbladder neck consistent with old studies. At this point he does localizes pain into his right upper quadrant area and with his history likely has had intermittent biliary colic. He has follow-up with Dr. Andrews already established and without an alternative diagnosis the working diagnosis right now is biliary colic secondary to his cholelithiasis. No evidence of acute cholecystitis. Patient was discharged in improved and stable condition. He will follow-up outpatient with Dr. Andrews. Procedures Miscellaneous Procedure Procedure Performed: Limited RUQ ultrasound Indication: Right upper quadrant abdominal pain Identified structures: -Gallbladder -Gallbladder wall -Common bile duct -Liver Findings: Gallbladder shows a single gallstone in the gallbladder neck negative sonographic De La Cruz's anterior gallbladder wall thickness is normal no pericholecystic fluid CBD unable to be visualized Impression: Cholelithiasis without evidence of radiographic cholecystitis Images were saved to permanent archive The study was technically adequate CPT 45318-50 This study was performed by me, and I personally interpreted all images/videos. Based on my clinical judgement, these images were adequate and did not necessitate further imaging. Critical Care Critical Care Time Critical Care Time: No
[2024-05-18] MEDS: ONDANSETRON 4MG ODT 4 MG SL (09:14)
[2024-05-18] MEDS: KETOROLAC 60MG/2ML VIAL 60 MG IM (09:15)
[2024-05-18 09:22] LABS: Appearance,Urine CLEAR (Clear); Bilirubin,Urine Negative (Negative); Blood, Urine Negative (Negative); Color,Urine YELLOW (Yellow); Glucose,Urine (UA) Negative (Negative); Ketones,Urine Negative (Negative); Leukocyte Esterase,Urine Negative (Negative); Nitrate,Urine Negative (Negative); PH,Urine 5.5 (5.0-8.5); Protein,Urine Negative (Negative); Specific Gravity, Urine >= 1.030 (1.005-1.030); Urobilinogen,Urine 0.2 EU/dl (0.2)
--- NOTE | 2024-05-18 09:41 | PC.NURSE ---
Spouse at BS
--- NOTE | 2024-05-18 09:58 | CT_ITS ---
PROCEDURE INFORMATION: Exam: CT Abdomen And Pelvis With Contrast Exam date and time: 05/18/2024 10:33 AM Age: 49 years old Clinical indication: Abdominal pain; Additional info: Refractory diffuse abd pain, max lower abd TECHNIQUE: Imaging protocol: Computed tomography of the abdomen and pelvis with contrast. Radiation optimization: All CT scans at this facility use at least one of these dose optimization techniques: automated exposure control; mA and/or kV adjustment per patient size (includes targeted exams where dose is matched to clinical indication); or iterative reconstruction. Contrast material: ISOVUE; Contrast volume: 75 ml; Contrast route: IV; COMPARISON: [id number] CT abdomen pelvis wo con 07/26/2018 8:54 AM FINDINGS: Lungs: Lung bases are clear as visualized. Heart: Base of heart is unremarkable as visualized. Liver: Normal. No mass. Gallbladder and biliary ducts: Cholelithiasis. Pancreas: Normal. No ductal dilation. Spleen: Normal. No splenomegaly. Adrenal glands: Normal. No mass. Kidneys and ureters: Normal. No hydronephrosis. Stomach and bowel: Fecalization of the terminal ileum which can be seen in slow transit. A few scattered colonic diverticula without evidence of diverticulitis. Appendix: No evidence of appendicitis. Intraperitoneal space: Unremarkable. No free air. No significant fluid collection. Vasculature: Unremarkable. No abdominal aortic aneurysm. Lymph nodes: Stable central mesenteric fat stranding with prominent lymph nodes from 07/26/2018. Urinary bladder: Unremarkable as visualized. Reproductive: Central dystrophic calcification of the prostate gland. Bones/joints: Scattered degenerative changes of the visualized osseous structures Soft tissues: Bilateral, [id number]-right fat containing inguinal hernias. IMPRESSION: No acute intra-abdominal findings.
[2024-05-18] MEDS: ONDANSETRON 4MG/2ML VIAL 4 MG IV (10:05)
[2024-05-18] MEDS: LACTATED RINGERS 1000ML 1,000 ML 999 ML IV (10:05)
[2024-05-18] MEDS: MORPHINE 4MG/ML SYRINGE 4 MG IV (10:05)
[2024-05-18 10:08] LABS: Squamous Epithelial Cell,Urine Occasional #/hpf (0-5)
[2024-05-18 10:22] LABS: Alanine Aminotransferase 46 U/L (12-78); Albumin/Globulin Ratio 1.5 (1.1-1.8); Alkaline Phosphatase 88 U/L (38-126); Anion Gap 9.2 mEq/L (5-15); Aspartate Amino Transferase 37 U/L (17-59); Bilirubin,Total 0.6 mg/dl (0.2-1.3); Blood Urea Nitrogen 20 mg/dl (9-20); Calcium 9.2 mg/dl (8.4-10.2); Carbon Dioxide 28 mmol/L (22.0-30.0); Chloride 104 mmol/L (98-107); Creatinine Clearance Estimated 143 mL/min (50-200); Estimated Glomerular Filt Rate 90 ml/min (>60); GFR (African American) 109 ML/MIN (>60); Globulin 2.7 g/dL (1.3-3.2); Glucose 115 mg/dl (74-100); Lipase 168 U/L (23-300); Potassium 4.2 mmoL/L (3.5-5.1); Sodium 137 mmol/L (136-145); Total Protein,Serum 6.7 g/dl (6.3-8.2)
[2024-05-18 10:26] LABS: Basophils % 0.4 % (0.1-2.0); Eosinophils # 0.1 K/mm3 (0.0-0.4); Eosinophils % 0.5 % (0.1-12.0); Hematocrit 43.6 % (42.0-52.0); Hemoglobin 14.8 g/dL (14.1-18.0); Lymphocytes # 1.6 K/mm3 (0.7-4.5); Lymphocytes % 15.1 % (10-50); Mean Corpuscular Hemoglobin 30.7 pg (27.0-31.2); Mean Corpuscular Volume 90.3 fl (80-94); Mean Platelet Volume 7.7 fl (7.4-10.4); Monocytes # 0.5 K/mm3 (0.1-1.0); Monocytes % 5.1 % (1.7-9.3); Neutrophils # 8.2 K/mm3 (1.8-7.8); Neutrophils % 78.9 % (37.0-80.0); Platelet Count 246 K/mm3 (142-424); Red Blood Count 4.83 M/mm3 (4.60-6.20); Red Cell Distribution Width 13.5 % (11.5-17.5); White Blood Count 10.4 K/mm3 (4.8-10.8)
[2024-05-18] MEDS: IOPAMIDOL-370 (76%);100ML BOTTLE 75 ML IV (10:44)
[2024-05-18] MEDS: SODIUM CHLORIDE 0.9% 10ML SYR (RAD ONLY) 10 ML IV (10:44)
--- NOTE | 2024-05-18 11:07 | PC.NURSE ---
Dr. Adams at bedside
--- NOTE | 2024-05-18 11:20 | PC.NURSE ---
DR SALVADOR AT BEDSIDE TO DISCUSS POC WITH PT
== END 2024-05-18 11:30 | disposition home or self-care (01) ==
PROVIDERS: Emergency Provider Student in an Organized Health Care Education/Training Program; PCP Internal Medicine Adolescent Medicine
DX: K80.50 Calculus of bile duct without cholangitis or cholecystitis without obstruction (principal); K80.20 Calculus of gallbladder without cholecystitis without obstruction; M54.9 Dorsalgia, unspecified; R10.11 Right upper quadrant pain; R11.2 Nausea with vomiting, unspecified
CPT/HCPCS: 74177; 80053; 81001; 83690; 85025; 96361; 96372; 96374; 96375; 99285; J1885; J2270; J2405; J7120; Q0162; Q9967